=== PATIENT | female | born 1950 | race Caucasian/White ===

== ENCOUNTER → 2016-11-02 | Outpatient (CLI) | payer MEDICARE, MEDICAID ==
[~2016-11-02] MED LIST: CALC-451 PO; CARI350T14 PO; CARV12.52 PO; DILT360C22 PO; Hydrocodone Bit/Acetaminophen PO; LOSA100T6 PO; POLY17PO5 PO; SIMV20TA3 PO; TRAM50TA2 PO; WARF4TAB7 PO
== END | disposition home or self-care (01) ==
LOC: CFH 10:24
PROVIDERS: ATTEND Genetic Counselor, MS
DX: Z13.820 Encounter for screening for osteoporosis (principal); M81.0 Age-related osteoporosis without current pathological fracture; Z78.0 Asymptomatic menopausal state
CPT/HCPCS: 77080

== ENCOUNTER 2016-12-11 07:22 | Emergency (ER) | payer MEDICARE, MEDICAID ==
[~2016-12-11] VITALS: Ht 170.2 cm; Wt 60.0 kg
[2016-12-11] MEDS ORDERED: ACET1TAB64 PO (07:55)
[2016-12-11 09:12] VITALS: BP 145/73
== END 2016-12-11 09:15 | disposition home or self-care (01) ==
LOC: ED 08:03
DX: S23.41XA Sprain of ribs, initial encounter (principal); X50.0XXA Overexertion from strenuous movement or load, initial encounter; Y93.89 Activity, other specified; Y92.89 Other specified places as the place of occurrence of the external cause; Y99.8 Other external cause status
CPT/HCPCS: 71020; 93005; 99284

== ENCOUNTER 2017-07-25 07:06 | Emergency (ER) | payer MEDICARE, MEDICAID ==
[~2017-07-25] VITALS: Ht 170.2 cm; Wt 65.7 kg
[~2017-07-25 07:06] MED LIST changes: +ACET1TAB64 PO
[2017-07-25 08:26] LABS: INTERNATIONAL NORMALIZED RATIO 4.63 (0.93-1.1)
[2017-07-25 08:43] LABS: PROTHROMBIN TIME 46.7 Seconds (9.6-11.5)
[2017-07-25 09:50] VITALS: BP 128/71
== END 2017-07-25 09:53 | disposition home or self-care (01) ==
LOC: ED 08:33
DX: S20.212A Contusion of left front wall of thorax, initial encounter (principal); I48.91 Unspecified atrial fibrillation; I10 Essential (primary) hypertension; X58.XXXA Exposure to other specified factors, initial encounter; Y93.89 Activity, other specified; Y92.89 Other specified places as the place of occurrence of the external cause; Y99.8 Other external cause status
CPT/HCPCS: 36415; 85610; 99285

== ENCOUNTER 2017-10-22 20:51 | Emergency (ER) | payer MEDICARE, MEDICAID ==
[~2017-10-22] VITALS: Ht 170.2 cm; Wt 64.7 kg
[~2017-10-22 20:51] MED LIST changes: +WARF4TAB65 PO; -WARF4TAB7 PO
[2017-10-22] MEDS ORDERED: ONDANSETRON ODT 4 MG ONE (21:12)
[2017-10-22 21:22] LABS: BASOPHILS # (AUTO) 0.03 x10^3/uL (0-0.1); BASOPHILS % (AUTO) 0 % (0-1); EOSINOPHILS % (AUTO) 1 % (1-7); LYMPHOCYTES # (AUTO) 1.18 x10^3/uL (1-3.4); LYMPHOCYTES % (AUTO) 12 % (22-44); MD NO; MEAN CORPUSCULAR HEMOGLOBIN 31.4 pg (27.0-34.8); MEAN CORPUSCULAR HGB CONC 33.4 g/dL (32.4-35.8); MEAN PLATELET VOLUME 7.9 fL (7.4-10.4); MONOCYTES # (AUTO) 0.51 x10^3/uL (0.2-0.8); MONOCYTES % (AUTO) 5 % (2-9); NEUTROPHILS # (AUTO) 7.69 x10^3/uL (1.8-6.8); NEUTROPHILS % (AUTO) 81 % (42-75); PLATELET COUNT 205 x10^3/uL (130-400); RED BLOOD COUNT 3.89 x10^6/uL (3.82-5.3); RED CELL DISTRIBUTION WIDTH 14.1 % (9.6-15.2)
[2017-10-22] MEDS ORDERED: ONDANSETRON ODT 4 MG PO ONE (21:30)
[2017-10-22 21:32] LABS: CHLORIDE 108 mmol/L (98-107)
[2017-10-22 21:33] LABS: ALANINE AMINOTRANSFERASE 39 U/L (12-78); ALBUMIN 3.9 g/dL (3.4-5.0); ANION GAP 4 mmol/L (5-15); CALCIUM 8.8 mg/dL (8.5-10.1); CREATININE 0.86 mg/dL (0.55-1.02)
[2017-10-22 21:34] LABS: INTERNATIONAL NORMALIZED RATIO 3.45 (0.93-1.1); PROTHROMBIN TIME 34.7 Seconds (9.6-11.5)
[2017-10-22 21:35] LABS: ALKALINE PHOSPHATASE 113 U/L (45-117); BILIRUBIN,TOTAL 1.1 mg/dL (0.2-1.0); TOTAL PROTEIN 7.5 g/dL (6.4-8.2)
[2017-10-22 21:54] LABS: CULTURE INDICATED? YES; MICROSCOPIC INDICATED
[2017-10-22 22:23] VITALS: BP 110/42
== END 2017-10-22 22:52 | disposition home or self-care (01) ==
LOC: ED 22:15
DX: N30.90 Cystitis, unspecified without hematuria (principal); K59.00 Constipation, unspecified; I10 Essential (primary) hypertension; I34.1 Nonrheumatic mitral (valve) prolapse; I48.91 Unspecified atrial fibrillation; Z86.73 Personal history of transient ischemic attack (TIA), and cerebral infarction without residual deficits; Z88.8 Allergy status to other drugs, medicaments and biological substances
CPT/HCPCS: 36415; 74021; 80053; 81001; 83690; 85025; 85610; 85730; 87086; 99285

== ENCOUNTER 2018-04-24 09:03 | Emergency (ER) | payer MEDICARE, MEDICAID ==
[~2018-04-24] VITALS: Ht 170.2 cm; Wt 64.2 kg
[~2018-04-24 09:03] MED LIST changes: -LOSA100T6 PO; +LOSA100T7 PO
[2018-04-24] MEDS ORDERED: BUPIVACAINE 0.25% ONE (09:47)
[2018-04-24 11:17] VITALS: BP 122/78
== END 2018-04-24 11:19 | disposition home or self-care (01) ==
LOC: ED 09:32
DX: M70.62 Trochanteric bursitis, left hip (principal); I48.91 Unspecified atrial fibrillation; I10 Essential (primary) hypertension; Z86.73 Personal history of transient ischemic attack (TIA), and cerebral infarction without residual deficits; Z90.710 Acquired absence of both cervix and uterus
CPT/HCPCS: 99283